=== PATIENT | male | born 1975 | race Caucasian/White ===

== ENCOUNTER 2024-09-25 00:40 | Day surgery (SDC) | payer BC, SELFPAY ==
[2024-09-17 08:29] VITALS: BMI 27.7
--- OUTSIDE RECORDS SUMMARY | 2024-09-25 00:42 | XMS_ITS | Continuity of Care Document ---
Author Organization [facility] Address [address] [place] [address] Phone Care Team Providers Care Manager Protein Name Role Phone Jerrell Barr DO Unavailable Unavailable Allergies, Adverse Reactions, Alerts Substance Reaction Status Criticality No Known Drug Allergies Other Active No I nformation Medications Medication Instructions Dosage Effective Dates (start - stop) Status Comments LOTRISONE 1-0.05% APPLICS 1 QD - Active ZITHROMAX TAB 250 MG Z-OSVALDO 250 1 DIRECTE - Active IBUPROFEN 600MG TABS 1 QID - Activ e GUAIFENESIN DM 600-30MG 600-30 1 BID - Active CLARINEX 5MG TABS 1 QD - Active ERYTHROMYCIN 5MG/G APPLICS 1 TID - Active Advance Directives Directive Yes / No Effective Date File Name No Information Encounters Encounter Description Practice Location Reason(s) For Visit Diagnoses Date Provider Providers Copied on Encounter [facility] [address], [place], [place], [address], tel:[phone] [facility] No Information 7-[address] [place], [address], [place], [address] , [place]. tel: [phone] [facility], [address], [place], [place], [address], tel:[phone] [facility] DERMATOPHYT SCALP/FAIRBANKS 3-[address] [place], [address], [place], [place], [address] , . tel: [phone] [facility], [address], [place], [place], [address], tel:[phone] [facility] DERMATOPHYTOSIS OF BODYROUTINE MEDICAL EXAMFAM HX-CARDIOVAS DIS NECSCREEN LIPOID DISORDERS [address] Cort[address] Allan. [address] [place] [address], [place] [address], [place], [place], [id number] , . tel: [phone] [facility], [address], [place], [place], [address], tel:[phone] [facility] ACUTE URI NOS 6 Cortney Allan. [address] [place] [address], [place] [address], [place], [place], [address] , [place]. tel: [phone] [facility], [address], [place], [place], [address], tel:[phone] [facility] ACUTE BRONCHITIS 6 Sandra Harris. [address] [place] [address], [place] [address], [place], [place], [address] . tel: [phone] [facility], [address], [place], [place], [address], tel:[phone] [facility] HORDEOLUM EXTERNUMALLERGIC RHINITIS NOS 3 Sandra Harris. [address] [place] [address], [place] [address], [place], [place], [address] . tel: [phone] Family History Family Member Type Diagnosis Age At Onset Family h/o Problem (finding) OTHER CARDIOVASCULAR DI SEASES Payers Payer name Insurance type Covered democrat ID Authoriza tion(s) No Information Social History Type Description Quantity Date Captured Comments Sex Male Smoking Status No Information Chief Complaint And Reason For Visit No Information Reason For Referral Reason For Referral No Information History Of Present Illness Encounter Date Complaint History Of Prese nt Illness No Information Functional Status Date Functional Assessmen t No Information Instructions Date Instruction Additional Infor mation No Information Assessments Type Assessment Date No Information Patient Care Teams Name Effective Dates (start - stop) Status Members No Information
[2024-09-25 06:23] VITALS: BP 120/78; PULSE 75; RESP 18; TEMP 36.2; O2SAT 99; BMI 27.3
[2024-09-25] MEDS: LACTATED RINGERS 1,000 ML 150 ML IV CONT (06:26)
--- NOTE | 2024-09-25 06:40 | WPDANESEPPF ---
Anes - Initial Pre Proc Eval Procedure: Operation Date: 09/25/24 07:30 Proposed Procedures p Screening Colonoscopy - Manuel Abarca MD Date/Time: 09/25/24 06:40 Surgeon: Manuel Abarca MD Pre Op Diagnosis: Screening Patient Data Age: 49 Gender: M Height: 1.85 m Weight: 94 kg Last Vital Signs Temp 36.2 C L 09/25/24 06:23 Pulse 75 09/25/24 06:23 Resp 18 09/25/24 06:23 BP 120/78 09/25/24 06:23 Pulse Ox 99 09/25/24 06:23 O2 Del Method Room Air 09/25/24 06:23 Allergies Allergy/AdvReac Type Severity Reaction Status Date / Time No Known Allergies Allergy Verified 09/25/24 06:21 Home Medications ?Medication ?Instructions ?Recorded ?Confirmed ?Type rosuvastatin 5 mg tablet 5 mg PO DAILY #90 tabs 08/19/24 09/25/24 Rx Patient hx anesthesia problems: none Family hx anesthesia problems: none Results Review: All pre-operative results and documents have been reviewed as part of the pre-operative evaluation. [facility] Past Medical History Medical History Herniation of intervertebral disc between L5 and S1 Inguinal hernia of right side without obstruction or gangrene Surgical History Surgical History H/O inguinal hernia repair Family History Family History Father High cholesterol Mother Arthritis Social History Social History Social History: Pt, and 2 kids all live at home Smoking status: Never smoker Second hand tobacco smoke exposure: No Alcohol intake: current Drinks per week: 2 Alcohol use details: socially Substance use: never Substance use type: does not use Do You Feel Safe in your Home?: Yes Lack of Transportation: No Lack of Food: Never True Current Housing: I Have Housing Concerned About Future Housing: No Difficulty Paying Gas/Electric Bills: No Difficulty Paying for Meds: No Currently Unemployed: No Education: Don't Know Difficulty w/ Childcare or Family Care: No Living arrangements: with family Occupation/Education: occupation Gender identity (if verbalized by the patient): Male Sexual Orientation (if Verbalized by the Patient): Straight or Heterosexual Spiritual care concerns: No Anes - Eval Final PreProcedure Day of Procedure 09/25/24 06:40 Patient weight: overweight Heart: regular rate and rhythm Lungs: clear to auscultation Airway: Mallampati scale class II Neurological: alert and oriented Last oral intake: >/= 8 hours ASA classification: II Emergent: no Anesthetic plan: proceed Anesthesia type and monitoring: general GIVS and standard monitoring Results Review: All pre-operative results and documents have been reviewed as part of the pre-operative evaluation. Informed Consent: The patient's anesthetic plan and its attendant risks and benefits were discussed with the patient/family/POA. Questions were solicited and answers provided to the satisfaction of the patient/family/POA.
--- NOTE | 2024-09-25 07:25 | PM.HPGS ---
History of Present Illness History of Present Illness Consent: Risks, benefits, and alternatives have been discussed and questions answered. Patient agrees to proceed with procedure. Chief complaint: Screening Narrative: Stiven Mac is a 49 year old male here for first screening colonoscopy Review of Systems Review of Systems: All systems reviewed & are unremarkable except as noted in HPI and below PMFSH Past Medical History Medical History Herniation of intervertebral disc between L5 and S1 Inguinal hernia of right side without obstruction or gangrene Surgical History Surgical History H/O inguinal hernia repair Family History Family History Father High cholesterol Mother Arthritis Social History Social History Social History: Pt, and 2 kids all live at home Smoking status: Never smoker Second hand tobacco smoke exposure: No Alcohol intake: current Drinks per week: 2 Alcohol use details: socially Substance use: never Substance use type: does not use Do You Feel Safe in your Home?: Yes Lack of Transportation: No Lack of Food: Never True Current Housing: I Have Housing Concerned About Future Housing: No Difficulty Paying Gas/Electric Bills: No Difficulty Paying for Meds: No Currently Unemployed: No Education: Don't Know Difficulty w/ Childcare or Family Care: No Living arrangements: with family Occupation/Education: occupation Gender identity (if verbalized by the patient): Male Sexual Orientation (if Verbalized by the Patient): Straight or Heterosexual Spiritual care concerns: No Meds Home Medications and Allergies Home Medications ?Medication ?Instructions ?Recorded ?Confirmed ?Type rosuvastatin 5 mg tablet 5 mg PO DAILY #90 tabs 08/19/24 09/25/24 Rx Allergies Allergy/AdvReac Type Severity Reaction Status Date / Time No Known Allergies Allergy Verified 09/25/24 06:21 Vital Signs Vital Signs - 24 hr 09/25/24 06:23 Temperature 97.1 F L Pulse Rate 75 Respiratory Rate 18 Blood Pressure 120/78 Pulse Oximetry 99 Oxygen Delivery Room Air Exam Const: General: comfortable and no acute distress HENMT: Face/Nose/Sinus: Normal nares present Eyes: General: appearance normal, both eyes and all related structures Neck: Neck: no JVD Resp: Auscultation: clear to auscultation bilaterally Cardio: Rate: regular rate Rhythm: regular rhythm GI: Inspection: non-distended GI Palp: Yes Soft to palpation Skin: General skin exam: normal color Neuro: Speech: normal speech Extrem: General: normal to inspection Psych: Mental Status: mental status grossly normal Assessment and Plan Assessment and plan (1) Colon cancer screening: Code(s): Z12.11 - Encounter for screening for malignant neoplasm of colon Status: Acute Assessment and Plan: colonoscopy
[2024-09-25 07:36] VITALS: BP 120/92; PULSE 73; RESP 17; O2SAT 97
[2024-09-25 07:46] VITALS: BP 117/77; PULSE 68; RESP 12; O2SAT 97
[2024-09-25 07:56] VITALS: BP 119/89; PULSE 66; RESP 19; O2SAT 97
== END 2024-09-25 08:01 | disposition home or self-care (01) ==
PROVIDERS: PCP Family Medicine; Referring Provider Family Medicine; Visit Provider Internal Medicine Gastroenterology
PROC: 0DJD8ZZ Inspection of Lower Intestinal Tract, Via Natural or Artificial Opening Endoscopic (ICD-10-PCS; CPT 45378; principal; 2024-09-25 07:30)
DX: Z12.11 Encounter for screening for malignant neoplasm of colon (principal)
CPT/HCPCS: 45378; J2704; J7120